=== PATIENT | male | born 1965 | race Caucasian/White ===

== ENCOUNTER 2018-12-28 05:55 | Day surgery (SDC) | payer OTHER | END 2018-12-28 11:00 | disposition home or self-care (01) | LOC: CIR.AMB 05:55 | DX: S43.121A Dislocation of right acromioclavicular joint, 100%-200% displacement, initial encounter (principal) ==

== ENCOUNTER 2022-01-08 08:06 | Inpatient (IN) | payer OTHER ==
[~2022-01-08] VITALS: Ht 180.3 cm; Wt 79.8 kg
[2022-01-08] MEDS ORDERED: ATORVASTATIN CA10 MG PO (08:23)
[2022-01-08] MEDS ORDERED: FAMOTIDINE20 MG PO (08:23)
== END 2022-01-15 14:16 | disposition home or self-care (01) | DRG 391 ==
LOC: ER 08:06 → MEDJ 13:33 → SEC-K 13:33 → MEDJ 16:23
PROVIDERS: ADMIT Internal Medicine; ATTEND Internal Medicine
PROC: BW21YZZ Computerized Tomography (CT Scan) of Abdomen and Pelvis using Other Contrast (ICD-10-PCS; 2022-01-08)
PROC: 02HV33Z Insertion of Infusion Device into Superior Vena Cava, Percutaneous Approach (ICD-10-PCS; principal; 2022-01-09)
DX: K57.20 Diverticulitis of large intestine with perforation and abscess without bleeding (principal); K85.80 Other acute pancreatitis without necrosis or infection; K65.1 Peritoneal abscess; R10.32 Left lower quadrant pain; E80.6 Other disorders of bilirubin metabolism

== ENCOUNTER 2022-01-21 08:20 | Outpatient (CLI) | payer OTHER ==
[~2022-01-21 08:20] MED LIST: ATORVASTATIN CA10 MG PO; FAMOTIDINE20 MG PO
== END 2022-01-21 08:33 | disposition home or self-care (01) ==
LOC: TOM 08:20
PROVIDERS: ATTEND Internal Medicine
DX: R10.9 Unspecified abdominal pain (principal)

== ENCOUNTER 2024-09-30 04:17 | Emergency (ER) | payer OTHER ==
[~2024-09-30] VITALS: Ht 177.8 cm; Wt 73.5 kg
[2024-09-30] MEDS ORDERED: COZAAR25 MG PO (04:48)
[2024-09-30] MEDS ORDERED: PEPCID AC20 MG PO (04:49)
[2024-09-30] MEDS ORDERED: HYDROCODONE/CHLORPHEN P-STIREX 5 ML ML PO STA (06:16)
== END 2024-09-30 06:47 | disposition home or self-care (01) ==
LOC: ER 04:19
DX: J06.9 Acute upper respiratory infection, unspecified (principal); Z88.8 Allergy status to other drugs, medicaments and biological substances